=== PATIENT | female | born 1980 | race American Indian/Alaskan Native ===

== ENCOUNTER 2017-02-14 21:10 | Emergency (ER) | payer OTHER ==
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
[2017-02-15] MEDS ORDERED: NORCO 5/325 PO ONE (00:25)
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
[2017-02-15 02:20] VITALS: BP 123/73
== END 2017-02-15 02:21 | disposition home or self-care (01) ==
LOC: ED 21:10
DX: S13.4XXA Sprain of ligaments of cervical spine, initial encounter (principal); M79.1 Myalgia; V49.49XA Driver injured in collision with other motor vehicles in traffic accident, initial encounter; Y92.488 Other paved roadways as the place of occurrence of the external cause; Y93.89 Activity, other specified; Y99.8 Other external cause status
CPT/HCPCS: 70450; 71020; 72125